=== PATIENT | male | born 1975 | race Asian ===

== ENCOUNTER 2017-09-17 11:31 | Emergency (ER) | payer OTHER ==
[~2017-09-17] VITALS: Ht 172.7 cm; Wt 117.9 kg
[2017-09-17 12:57] LABS: PLATELET COUNT 229 K/uL (142-355)
[2017-09-17 13:10] LABS: POTASSIUM 3.7 mmol/L (3.6-5.2)
[2017-09-17 13:30] VITALS: BP 145/77; TEMP 97.2
== END 2017-09-17 13:30 | disposition home or self-care (01) ==
LOC: ED 11:31
DX: L50.8 Other urticaria (principal)
CPT/HCPCS: 36415; 80053; 81000; 85027; 99283

== ENCOUNTER 2018-01-12 17:24 | Emergency (ER) | payer OTHER ==
[~2018-01-12] VITALS: Ht 172.7 cm; Wt 117.9 kg
[2018-01-12 18:07] LABS: PLATELET COUNT 194 K/uL (142-355)
[2018-01-12 18:59] LABS: POTASSIUM 3.5 mmol/L (3.6-5.2)
== END 2018-01-12 20:11 | disposition home or self-care (01) ==
LOC: ED 17:24
DX: R21 Rash and other nonspecific skin eruption (principal); T78.40XA Allergy, unspecified, initial encounter; J40 Bronchitis, not specified as acute or chronic
CPT/HCPCS: 36415; 80053; 85027; 85651; 99283; J2930